=== PATIENT | female | born 1970 | race Caucasian/White ===

== ENCOUNTER 2019-08-07 08:42 | Inpatient (IN) | payer BC ==
[2019-08-07] MEDS ORDERED: Sodium Chloride 0.9% 1,000 ML IV ONE (09:01)
[2019-08-07] MEDS ORDERED: Morphine 10 MG/ML Syringe IVPUSH ONE (09:01)
[2019-08-07] MEDS ORDERED: Ondansetron 4 MG/2 ML SDV IVPUSH ONE (09:02)
--- NOTE | 2019-08-07 09:37 | CR ---
Chest: Portable view of the chest was obtained. Comparison: Prior chest x-ray of 12/28/15. Multiple old left-sided rib deformities are seen. Scoliosis is noted within the spine. Heart size and mediastinum are normal. Lungs are clear with no acute parenchymal change. Impression: 1. Findings as described above. 2. Nothing acute is appreciated on portable chest x-ray. Diagnostic code #2 This report was dictated in MDT
[2019-08-07 09:49] LABS: BLOOD UREA NITROGEN,BUN 12 mg/dL (7.0-18.0); CARBON DIOXIDE,CO2 21.7 mmol/L (21.0-32.0); CHLORIDE,CL 98 mmol/L (98-107); GLUCOSE RANDOM 132 mg/dL (74-106); LIPASE 92 U/L (73-393); POTASSIUM,K 3.8 mmol/L (3.5-5.1); SODIUM,NA 134 mmol/L (136-145)
--- NOTE | 2019-08-07 11:23 | CT ---
CT abdomen and pelvis Technique: Multiple axial sections were obtained from above the dome of the diaphragm inferiorly through the pubic symphysis. Intravenous contrast was utilized. No oral contrast has been given. Findings: Visualized lung bases show nothing acute. Deformity is noted to several left lower ribs compatible with old fractures. Calcifications are seen along the splenic periphery most likely relating to old injury with dystrophic calcifications. Adrenal glands show no nodule. Kidneys show symmetric contrast enhancement without hydronephrosis or mass. Gallbladder contains no calcified gallstones. Pancreas is within normal limits. Aorta shows no aneurysm. No retroperitoneal adenopathy or mesenteric abnormalities are seen. There is bowel wall thickening being seen within the sigmoid colon. Diverticuli are also noted within the sigmoid colon. Mild surrounding inflammatory change is also noted in this area around the sigmoid colon. Findings are felt compatible with diverticulitis. Small cyst is noted within the left ovary measuring 2.4 cm. Appendix is seen and is normal in size. Bone window settings were reviewed which shows scoliosis and mild degenerative change within the spine. Impression: 1. Findings of diverticulitis as noted above. This occurs within the sigmoid colon. 2. 2.4 cm cyst within the left ovary. Follow-up pelvic ultrasound could be considered in 6 months (January,) to make sure this does not enlarge. 3. Other findings believed to be incidental and nonacute as noted above. Diagnostic code #3 This report was dictated in MDT
[2019-08-07] MEDS ORDERED: Piperacillin/Tazobactam 3.375 GM in Sodium Chloride 0.9% 50 ML IV ONE (11:32)
[2019-08-07] MEDS ORDERED: metroNIDAZOLE/Normal Saline 500 MG in Premix Bag 1 BAG IV ONE ×2 (11:33→13:15)
--- NOTE | 2019-08-07 11:53 | EDM.PDOC ---
ED HPI GENERAL MEDICAL PROBLEM - General Chief Complaint: Abdominal Pain Stated Complaint: STOMACH PAIN Time Seen by Provider: 08/07/19 08:57 Source of Information: Reports: Patient History Limitations: Reports: No Limitations - History of Present Illness INITIAL COMMENTS - FREE TEXT/NARRATIVE: -49 year-old female presents to the emergency room chief complaint of severe lower abdominal pain. Patient denies nausea vomiting diarrhea or chest pain or shortness of breath Onset: Today Duration: Hour(s):, Getting Worse Location: Reports: Abdomen Quality: Reports: Ache Severity: Moderate Improves with: Reports: None Worsens with: Reports: None Abdominal Pain Score (Numeric/FACES): 10 - Related Data Allergies Allergy/AdvReac Type Severity Reaction Status Date / Time No Known Allergies Allergy Verified 08/07/19 12:48 Home Meds: Home Meds . [No Known Home Meds] 08/07/19 [History] Past Medical History HEENT History: Reports: Other (See Below) Other HEENT History: wears glasses, has upper denture Cardiovascular History: Reports: High Cholesterol Respiratory History: Reports: Pneumothorax Other Respiratory History: "punctured lung" Gastrointestinal History: Reports: Other (See Below) Other Gastrointestinal History: hx of ruptured spleen 14 years ago Genitourinary History: Reports: None [employer] ASSISTANT History: Reports: None Musculoskeletal History: Reports: Fracture Other Musculoskeletal History: hx of fx foot and ribs, hx of scoliosis Neurological History: Reports: None Psychiatric History: Reports: None Endocrine/Metabolic History: Reports: None Hematologic History: Reports: None Immunologic History: Reports: None Oncologic (Cancer) History: Reports: None Dermatologic History: Reports: None - Infectious Disease History Infectious Disease History: Reports: None - Past Surgical History Head Surgeries/Procedures: Reports: None HEENT Surgical History: Reports: Tonsillectomy Other Respiratory Surgeries/Procedures: hx of 7 fx ribs with Pneumothorax- had left chest tube insertion (14 years ago) GI Surgical History: Reports: Other (See Below) Other GI Surgeries/Procedures: Spleenic repair Female Surgical History: Reports: Cervical Conization, Tubal Ligation Social & Family History - Family History Family Medical History: Noncontributory HEENT: Reports: None Cardiac: Reports: None Respiratory: Reports: None GI: Reports: None : Reports: None OBGYN: Reports: None Musculoskeletal: Reports: None Neurological: Reports: None Psychiatric: Reports: None Endocrine/Metabolic: Reports: None Hematologic: Reports: None Immunologic: Reports: None Dermatologic: Reports: None Oncologic: Reports: None - Tobacco Use Smoking Status *Q: Former Smoker Used Tobacco, but Quit: Yes Month/Year Tobacco Last Used: 2019 - Caffeine Use Caffeine Use: Reports: Coffee - Recreational Drug Use Recreational Drug Use: No ED ROS GENERAL - Review of Systems Review Of Systems: See Below Constitutional: Reports: No Symptoms, Fever, Chills, Malaise HEENT: Reports: No Symptoms Respiratory: Reports: No Symptoms Cardiovascular: Reports: No Symptoms Endocrine: Reports: No Symptoms GI/Abdominal: Reports: Abdominal Pain, Anorexia, Diarrhea, Nausea : Reports: No Symptoms ED EXAM, GI/ABD - Physical Exam Exam: See Below Exam Limited By: Altered Mental Status General Appearance: Alert, WD/WN, No Apparent Distress Eyes: Bilateral: Normal Appearance Ears: Normal External Exam, Normal Canal, Hearing Grossly Normal, Normal TMs Nose: Normal Inspection, Normal Mucosa, No Blood Throat/Mouth: Normal Inspection, Normal Lips, Normal Teeth, Normal Gums, Normal Oropharynx, Normal Voice, No Airway Compromise Head: Atraumatic, Normocephalic Neck: Normal Inspection, Supple, Non-Tender, Full Range of Motion Respiratory/Chest: No Respiratory Distress Cardiovascular: Normal Peripheral Pulses GI/Abdominal Exam: Guarding, Rebound, Tender, Abnormal Bowel Sounds (Female) Exam: Deferred Rectal (Female) Exam: Deferred Back Exam: Normal Inspection, Full Range of Motion Extremities: Normal Inspection, Normal Range of Motion, Non-Tender, No Pedal Edema, Normal Capillary Refill Neurological: Alert, Oriented, CN II-XII Intact, Normal Cognition, Normal Gait, Normal Reflexes, No Motor/Sensory Deficits Psychiatric: Normal Affect, Normal Mood Skin Exam: Warm Lymphatic: No Adenopathy Course - Vital Signs Last Recorded V/S: Last Vital Signs Temp 98.6 F 08/08/19 16:00 Pulse 82 08/08/19 16:00 Resp 18 08/08/19 16:00 BP 108/55 L 08/08/19 16:00 Pulse Ox 95 08/08/19 16:00 - Orders/Labs/Meds Orders: Medication Orders Acetaminophen (Tylenol) 650 mg PO Q4H PRN PRN Reason: Pain Last Admin: 08/08/19 13:23 Dose: 650 mg Admin: 08/08/19 05:47 Dose: 650 mg Admin: 08/07/19 22:56 Dose: 650 mg Admin: 08/07/19 13:30 Dose: 650 mg Enoxaparin Sodium (Lovenox) 40 mg SUBCUT Q24H [facility] Last Admin: 08/08/19 12:43 Dose: 40 mg Admin: 08/07/19 13:25 Dose: 40 mg Sodium Chloride (Normal Saline) 1,000 mls @ 125 mls/hr IV ASDIRECTED [facility] Last Admin: 08/08/19 06:54 Dose: 125 mls/hr Infusion: 08/08/19 06:54 Dose: 125 mls/hr Admin: 08/07/19 23:00 Dose: 125 mls/hr Infusion: 08/07/19 21:20 Dose: 125 mls/hr Admin: 08/07/19 13:20 Dose: 125 mls/hr Piperacillin Sod/Tazobactam (Sod 3.375 gm/ Sodium Chloride) 50 mls @ 100 mls/ hr IV Q6HR [facility] Last Admin: 08/08/19 17:26 Dose: 100 mls/hr Infusion: 08/08/19 13:13 Dose: 100 mls/hr Admin: 08/08/19 12:43 Dose: 100 mls/hr Infusion: 08/08/19 06:18 Dose: 100 mls/hr Admin: 08/08/19 05:48 Dose: 100 mls/hr Infusion: 08/08/19 00:56 Dose: 100 mls/hr Admin: 08/08/19 00:26 Dose: 100 mls/hr Infusion: 08/07/19 18:12 Dose: 100 mls/hr Admin: 08/07/19 17:42 Dose: 100 mls/hr Potassium Chloride/Sodium Chloride (Normal Saline With 40 Meq Kcl) 1,000 mls @ 150 mls/hr IV ASDIRECTED [facility] Stop: 08/08/19 19:39 Last Admin: 08/08/19 15:07 Dose: 150 mls/hr Morphine Sulfate (Morphine) 2 mg IVPUSH Q4H PRN PRN Reason: Pain Last Admin: 08/07/19 22:58 Dose: 2 mg Admin: 08/07/19 18:24 Dose: 2 mg Admin: 08/07/19 13:34 Dose: 2 mg Ondansetron HCl (Zofran) 4 mg IVPUSH Q4H PRN PRN Reason: Nausea/Vomiting Labs: Laboratory Tests 08/07/19 08/07/19 08/07/19 Range/Units 09:07 09:07 09:07 WBC 17.99 H (4.0-11.0) K/uL RBC 4.48 (4.30-5.90) M/uL Hgb 13.0 (12.0-16.0) g/dL Hct 40.0 (36.0-46.0) % MCV 89.3 (80.0-98.0) fL MCH 29.0 (27.0-32.0) pg MCHC 32.5 (31.0-37.0) g/dL RDW Std Deviation 41.8 (28.0-62.0) fl RDW Coeff of Nevin 13 (11.0-15.0) % Plt Count 315 (150-400) K/uL MPV 9.70 (7.40-12.00) fL Neut % (Auto) 80.5 H (48.0-80.0) % Lymph % (Auto) 11.7 L (16.0-40.0) % [place] % (Auto) 7.4 (0.0-15.0) % Eos % (Auto) 0.2 (0.0-7.0) % Baso % (Auto) 0.2 (0.0-1.5) % Neut # (Auto) 14.5 H (1.4-5.7) K/uL Lymph # (Auto) 2.1 (0.6-2.4) K/uL [place] # (Auto) 1.3 H (0.0-0.8) K/uL Eos # (Auto) 0.0 (0.0-0.7) K/uL Baso # (Auto) 0.0 (0.0-0.1) K/uL Nucleated RBC % 0.0 /100WBC Nucleated RBCs # 0 K/uL Lactate 0.6 (0.20-2.00) mmol/L Sodium 134 L (136-145) mmol/L Potassium 3.8 (3.5-5.1) mmol/L Chloride 98 (98-107) mmol/L Carbon Dioxide 21.7 (21.0-32.0) mmol/L BUN 12 (7.0-18.0) mg/dL Creatinine 0.8 (0.6-1.0) mg/dL Est Cr Clr Drug Dosing 83.92 mL/min Estimated GFR (MDRD) > 60.0 ml/min Glucose 132 H (74-106) mg/dL Calcium 9.2 (8.5-10.1) mg/dL Total Bilirubin 0.5 (0.2-1.0) mg/dL AST 27 (15-37) IU/L ALT 34 (14-63) IU/L Alkaline Phosphatase 48 (46-116) U/L Total Protein 7.8 (6.4-8.2) g/dL Albumin 4.1 (3.4-5.0) g/dL Globulin 3.7 (2.6-4.0) g/dL Albumin/Globulin Ratio 1.1 (0.9-1.6) Lipase 92 (73-393) U/L Urine Color Urine Appearance Urine pH (5.0-8.0) Ur Specific [place] (1.001-1.035) Urine Protein (NEGATIVE) mg/dL Urine Glucose (UA) (NEGATIVE) mg/dL Urine Ketones (NEGATIVE) mg/dL Urine Occult Blood (NEGATIVE) Urine Nitrite (NEGATIVE) Urine Bilirubin (NEGATIVE) Urine Urobilinogen (<2.0) EU/dL Ur Leukocyte Esterase (NEGATIVE) 08/07/19 Range/Units 10:57 WBC (4.0-11.0) K/uL RBC (4.30-5.90) M/uL Hgb (12.0-16.0) g/dL Hct (36.0-46.0) % MCV (80.0-98.0) fL MCH (27.0-32.0) pg MCHC (31.0-37.0) g/dL RDW Std Deviation (28.0-62.0) fl RDW Coeff of [place]evin (11.0-15.0) % Plt Count (150-400) K/uL MPV (7.40-12.00) fL Neut % (Auto) (48.0-80.0) % Lymph % (Auto) (16.0-40.0) % [place] % (Auto) (0.0-15.0) % Eos % (Auto) (0.0-7.0) % Baso % (Auto) (0.0-1.5) % Neut # (Auto) (1.4-5.7) K/uL Lymph # (Auto) (0.6-2.4) K/uL [place] # (Auto) (0.0-0.8) K/uL Eos # (Auto) (0.0-0.7) K/uL Baso # (Auto) (0.0-0.1) K/uL Nucleated RBC % /100WBC Nucleated RBCs # K/uL Lactate (0.20-2.00) mmol/L Sodium (136-145) mmol/L Potassium (3.5-5.1) mmol/L Chloride (98-107) mmol/L Carbon Dioxide (21.0-32.0) mmol/L BUN (7.0-18.0) mg/dL Creatinine (0.6-1.0) mg/dL Est Cr Clr Drug Dosing mL/min Estimated GFR (MDRD) ml/min Glucose (74-106) mg/dL Calcium (8.5-10.1) mg/dL Total Bilirubin (0.2-1.0) mg/dL AST (15-37) IU/L ALT (14-63) IU/L Alkaline Phosphatase (46-116) U/L Total Protein (6.4-8.2) g/dL Albumin (3.4-5.0) g/dL Globulin (2.6-4.0) g/dL Albumin/Globulin Ratio (0.9-1.6) Lipase (73-393) U/L Urine Color YELLOW Urine Appearance CLEAR Urine pH 6.0 (5.0-8.0) Ur Specific [place] <= 1.005 (1.001-1.035) Urine Protein NEGATIVE (NEGATIVE) mg/dL Urine Glucose (UA) NEGATIVE (NEGATIVE) mg/dL Urine Ketones NEGATIVE (NEGATIVE) mg/dL Urine Occult Blood NEGATIVE (NEGATIVE) Urine Nitrite NEGATIVE (NEGATIVE) Urine Bilirubin NEGATIVE (NEGATIVE) Urine Urobilinogen 0.2 (<2.0) EU/dL Ur Leukocyte Esterase NEGATIVE (NEGATIVE) Meds: Medications Generic Name Dose Route Start Last Admin Trade Name Freq PRN Reason Stop Dose Admin Acetaminophen 650 mg 08/07/19 13:17 08/08/19 13:23 Tylenol PO 650 mg Q4H PRN Administration Pain Enoxaparin Sodium 40 mg 08/07/19 12:00 08/08/19 12:43 Lovenox SUBCUT 40 mg Q24H VICKIE Administration Sodium Chloride 1,000 mls @ 125 mls/hr 08/07/19 12:00 08/08/19 06:54 Normal Saline IV 125 mls/hr ASDIRECTED VICKIE Administration Piperacillin Sod/Tazobactam 50 mls @ 100 mls/hr 08/07/19 18:00 08/08/19 17:26 Sod 3.375 gm/ Sodium Chloride IV 100 mls/hr Q6HR VICKIE Administration Potassium Chloride/Sodium Chloride 1,000 mls @ 150 mls/hr 08/08/19 13:00 15:07 Normal Saline With 40 Meq Kcl IV 08/08/19 19:39 150 mls/hr ASDIRECTED VICKIE Administration Morphine Sulfate 2 mg 08/07/19 11:54 08/07/19 22:58 Morphine IVPUSH 2 mg Q4H PRN Administration Pain Ondansetron HCl 4 mg 08/07/19 11:54 Zofran IVPUSH Q4H PRN Nausea/Vomiting Discontinued Medications Generic Name Dose Route Start Last Admin Trade Name Freq PRN Reason Stop Dose Admin Sodium Chloride 1,000 mls @ 1,000 mls/hr 08/07/19 09:01 08/07/19 09:16 Normal Saline IV 08/07/19 10:00 1,000 mls/hr .Bolus ONE Administration Piperacillin Sod/Tazobactam 50 mls @ 100 mls/hr 08/07/19 11:32 08/07/19 11:56 Sod 3.375 gm/ Sodium Chloride IV 08/07/19 12:01 100 mls/hr ONETIME ONE Administration Metronidazole 500 mg/ Premix 100 mls @ 100 mls/hr 08/07/19 11:33 08/07/19 13: 21 IV 08/07/19 12:32 100 mls/hr ONETIME ONE Administration Piperacillin Sod/Tazobactam 50 mls @ 100 mls/hr 08/07/19 12:00 08/07/19 14:37 Sod 3.375 gm/ Sodium Chloride IV Not Given Q6H VICKIE Metronidazole 500 mg/ Premix 100 mls @ 100 mls/hr 08/07/19 13:15 08/07/19 13: 40 IV 08/07/19 14:14 Not Given ONETIME ONE Iopamidol 100 ml 08/07/19 14:41 08/07/19 14:48 Isovue-370 (76%) IVPUSH 08/07/19 14:42 100 ml ONETIME STA Administration Morphine Sulfate 6 mg 08/07/19 09:01 08/07/19 09:16 Morphine IVPUSH 08/07/19 09:02 6 mg ONETIME ONE Administration Ondansetron HCl 4 mg 08/07/19 09:02 08/07/19 09:16 Zofran IVPUSH 08/07/19 09:03 4 mg ONETIME ONE Administration Departure - Departure Time of Disposition: 19:27 Disposition: Admitted As Inpatient 64 Condition: Good Clinical Impression: Diverticulitis large intestine w/o perforation or abscess w/bleeding - Discharge Information Sepsis Event Note - Evaluation Sepsis Screening Result: Possible Sepsis Risk - Focused Exam Date Exam was Performed: 08/08/19 Time Exam was Performed: 19:27
[2019-08-07] MEDS ORDERED: Ondansetron 4 MG/2 ML SDV IVPUSH PRN (11:54)
[2019-08-07] MEDS ORDERED: Piperacillin/Tazobactam 3.375 GM in Sodium Chloride 0.9% 50 ML IV SCH (12:00)
--- NOTE | 2019-08-07 12:00 | PCM.HP.2 ---
H&P History of Present Illness - General Date of Service: 08/07/19 Admit Problem/Dx: Admission Diagnosis/Problem Admission Diagnosis/Problem Diverticulitis - History of Present Illness Initial Comments - Free Text/Narative: The patient is a 49 year old female who presented to the ER with lower abdominal pain for one day. Had associated chills but no fever and burning with urination. She denies associated nausea, vomiting, diarrhea, black/bloody stools. Eating fine yesterday but no appetite today. Denies previous episodes in the past. Denies past medical history. In the ER, work up revealed leukocytosis of 18, no anemia, lipase wnl, lactate wnl. Blood cultures were drawn. CT ab/pelvis revealed diverticulitis. In the ER she was given bolus of fluids, Zofran, dose of Flagyl and Zosyn. She was also given morphine for pain. PCP- none Abdominal Pain Score (Numeric/FACES): 10 - Related Data Allergies/Adverse Reactions: Allergies Allergy/AdvReac Type Severity Reaction Status Date / Time No Known Allergies Allergy Verified 08/07/19 12:48 Home Medications: Home Meds . [No Known Home Meds] 08/07/19 [History] Past Medical History HEENT History: Reports: Other (See Below) Other HEENT History: wears glasses, has upper denture Cardiovascular History: Reports: High Cholesterol Respiratory History: Reports: Pneumothorax Other Respiratory History: "punctured lung" Gastrointestinal History: Reports: Other (See Below) Other Gastrointestinal History: hx of ruptured spleen 14 years ago Genitourinary History: Reports: None J[employer] PRINCIPAL History: Reports: None Musculoskeletal History: Reports: Fracture Other Musculoskeletal History: hx of fx foot and ribs, hx of scoliosis Neurological History: Reports: None Psychiatric History: Reports: None Endocrine/Metabolic History: Reports: None Hematologic History: Reports: None Immunologic History: Reports: None Oncologic (Cancer) History: Reports: None Dermatologic History: Reports: None - Infectious Disease History Infectious Disease History: Reports: None - Past Surgical History Head Surgeries/Procedures: Reports: None HEENT Surgical History: Reports: Tonsillectomy Other Respiratory Surgeries/Procedures: hx of 5 fx ribs with Pneumothorax- had left chest tube insertion (14 years ago) GI Surgical History: Reports: Other (See Below) Other GI Surgeries/Procedures: Spleenic repair Female Surgical History: Reports: Cervical Conization, Tubal Ligation Social & Family History - Family History Family Medical History: Noncontributory HEENT: Reports: None Cardiac: Reports: None Respiratory: Reports: None GI: Reports: None : Reports: None OBGYN: Reports: None Musculoskeletal: Reports: None Neurological: Reports: None Psychiatric: Reports: None Endocrine/Metabolic: Reports: None Hematologic: Reports: None Immunologic: Reports: None Dermatologic: Reports: None Oncologic: Reports: None - Tobacco Use Smoking Status *Q: Former Smoker Used Tobacco, but Quit: Yes Month/Year Tobacco Last Used: 2019 - Caffeine Use Caffeine Use: Reports: Coffee - Recreational Drug Use Recreational Drug Use: No H&P Review of Systems - Review of Systems: Review Of Systems: See Below General: Reports: Chills, Decreased Appetite. Denies: Fever HEENT: Reports: No Symptoms Pulmonary: Reports: No Symptoms Cardiovascular: Reports: No Symptoms Gastrointestinal: Reports: Abdominal Pain. Denies: Black Stool, Bloody Stool, Constipation, Diarrhea, Nausea, Vomiting Genitourinary: Reports: Dysuria, Burning Musculoskeletal: Reports: No Symptoms Skin: Reports: No Symptoms Psychiatric: Reports: No Symptoms Neurological: Reports: No Symptoms Hematologic/Lymphatic: Reports: No Symptoms Immunologic: Reports: No Symptoms Exam - Exam Exam: See Below - Vital Signs Vital Signs: Last Vital Signs Temp 97.1 F 08/07/19 11:55 Pulse 92 08/07/19 11:55 Resp 18 08/07/19 11:55 BP 101/46 L 08/07/19 11:55 Pulse Ox 95 08/07/19 11:55 Weight: 86.183 kg - Exam General: Alert, Oriented, Cooperative HEENT: Conjunctiva Clear, EOMI, Mucosa Moist & [place], Posterior Pharynx Clear, Pupils Equal, Pupils Reactive Lungs: Clear to Auscultation, Normal Respiratory Effort Cardiovascular: Regular Rate, Regular Rhythm GI/Abdominal Exam: Normal Bowel Sounds, Soft, Tender (RLQ and LLQ) Extremities: No Pedal Edema Skin: Warm, Dry, Intact Psychiatric: Alert, Normal Affect, Normal Mood - Patient Data Lab Results Last 24 hrs: Laboratory Results - last 24 hr 08/07/19 08/07/19 08/07/19 Range/Units 09:07 09:07 09:07 WBC 17.99 H (4.0-11.0) K/uL RBC 4.48 (4.30-5.90) M/uL Hgb 13.0 (12.0-16.0) g/dL Hct 40.0 (36.0-46.0) % MCV 89.3 (80.0-98.0) fL MCH 29.0 (27.0-32.0) pg MCHC 32.5 (31.0-37.0) g/dL RDW Std Deviation 41.8 (28.0-62.0) fl RDW Coeff of Nevin 13 (11.0-15.0) % Plt Count 315 (150-400) K/uL MPV 9.70 (7.40-12.00) fL Neut % (Auto) 80.5 H (48.0-80.0) % Lymph % (Auto) 11.7 L (16.0-40.0) % [place] % (Auto) 7.4 (0.0-15.0) % Eos % (Auto) 0.2 (0.0-7.0) % Baso % (Auto) 0.2 (0.0-1.5) % Neut # (Auto) 14.5 H (1.4-5.7) K/uL Lymph # (Auto) 2.1 (0.6-2.4) K/uL [place] # (Auto) 1.3 H (0.0-0.8) K/uL Eos # (Auto) 0.0 (0.0-0.7) K/uL Baso # (Auto) 0.0 (0.0-0.1) K/uL Nucleated RBC % 0.0 /100WBC Nucleated RBCs # 0 K/uL Lactate 0.6 (0.20-2.00) mmol/L Sodium 134 L (136-145) mmol/L Potassium 3.8 (3.5-5.1) mmol/L Chloride 98 (98-107) mmol/L Carbon Dioxide 21.7 (21.0-32.0) mmol/L BUN 12 (7.0-18.0) mg/dL Creatinine 0.8 (0.6-1.0) mg/dL Est Cr Clr Drug Dosing 83.92 mL/min Estimated GFR (MDRD) > 60.0 ml/min Glucose 132 H (74-106) mg/dL Calcium 9.2 (8.5-10.1) mg/dL Total Bilirubin 0.5 (0.2-1.0) mg/dL AST 27 (15-37) IU/L ALT 34 (14-63) IU/L Alkaline Phosphatase 48 (46-116) U/L Total Protein 7.8 (6.4-8.2) g/dL Albumin 4.1 (3.4-5.0) g/dL Globulin 3.7 (2.6-4.0) g/dL Albumin/Globulin Ratio 1.1 (0.9-1.6) Lipase 92 (73-393) U/L Result Diagrams: 08/07/19 09:07 08/07/19 09:07 Sepsis Event Note - Evaluation Sepsis Screening Result: Possible Sepsis Risk - Focused Exam Vital Signs: Vital Signs Temp Pulse Resp BP Pulse Ox 08/07/19 11:55 97.1 F 92 18 101/46 L 95 08/07/19 08:53 95.9 F L 123 H 20 111/73 98 Date Exam was Performed: 08/07/19 Time Exam was Performed: 13:36 Problem List Initiated/Reviewed/Updated: Yes Orders Last 24hrs: Active Orders 24 hr Category Date Time Status Admission Status [Patient Status] [ADT] Stat ADT 08/07/19 11:50 Active Intake and Output [RC] ASDIRECTED Care 08/07/19 11:54 Ordered Vital Signs [RC] PER UNIT ROUTINE Care 08/07/19 11:54 Ordered Nothing Per Oral Diet [DIET] Diet 08/07/19 Lunch Ordered CULTURE BLOOD [BC] Stat Lab 08/07/19 09:29 Received CULTURE BLOOD [BC] Stat Lab 08/07/19 09:51 Received Enoxaparin [Lovenox] Med 08/07/19 12:00 Ordered 40 mg SUBCUT Q24H Morphine Med 08/07/19 11:54 Ordered 2 mg IVPUSH Q4H PRN Ondansetron [Zofran] Med 08/07/19 11:54 Ordered 4 mg IVPUSH Q4H PRN Piperacillin/Tazobactam [Piperacil-Tazobact] 3.375 gm Med 08/07/19 11:32 Active Sodium Chloride 0.9% [Normal Saline] 50 ml IV ONETIME Piperacillin/Tazobactam [Piperacil-Tazobact] 3.375 gm Med 08/07/19 12:00 Ordered Sodium Chloride 0.9% [Normal Saline] 50 ml IV Q6H Sodium Chloride 0.9% @ 125 MLS/HR (1,000ml) Med 08/07/19 12:00 Ordered Sodium Chloride 0.9% [Normal Saline] 1,000 ml IV ASDIRECTED metroNIDAZOLE/Normal Saline [Flagyl 500 MG in NS 100 ML Med 08/07/19 11:33 Active ] 500 mg Premix Bag 1 bag IV ONETIME Blood Culture x2 Reflex Set [OM.PC] Stat Oth 08/07/19 09:04 Ordered Resuscitation Status Stat Resus Stat 08/07/19 11:54 Ordered Medication Orders Enoxaparin Sodium (Lovenox) 40 mg SUBCUT Q24H VICKIE Piperacillin Sod/Tazobactam (Sod 3.375 gm/ Sodium Chloride) 50 mls @ 100 mls/ hr IV ONETIME ONE Stop: 08/07/19 12:01 Last Admin: 08/07/19 11:56 Dose: 100 mls/hr Metronidazole 500 mg/ Premix 100 mls @ 100 mls/hr IV ONETIME ONE Stop: 08/07/19 12:32 Piperacillin Sod/Tazobactam (Sod 3.375 gm/ Sodium Chloride) 50 mls @ 100 mls/ hr IV Q6H VICKIE Sodium Chloride (Normal Saline) 1,000 mls @ 125 mls/hr IV ASDIRECTED VICKIE Morphine Sulfate (Morphine) 2 mg IVPUSH Q4H PRN PRN Reason: Pain Ondansetron HCl (Zofran) 4 mg IVPUSH Q4H PRN PRN Reason: Nausea/Vomiting Assessment/Plan Comment:: 1. Admit as inpatient 2. Code status- full 3. Vitals per routine 4. I/Os per routine 5. Diet- NPO 6. DVT prophylaxis with Lovenox 7. Diverticulitis- will keep NPO to allow for bowel rest. Start IVFs. Continue Zosyn for antibiotics. PRN Zofran and morphine. 8. Burning with urination-obtain UA but already on antibiotics.
[2019-08-07] MEDS: Sodium Chloride 0.9% 1,000 ML IV SCH ×2 (13:20→23:00)
[2019-08-07] MEDS: Enoxaparin 40 MG/0.4 ML Syringe SUBCUT SCH (13:25)
[2019-08-07] MEDS: Acetaminophen 325 MG Tab PO PRN ×2 (13:30→22:56)
[2019-08-07] MEDS: Morphine 2 MG/ML Syringe IVPUSH PRN ×3 (13:34→22:58)
[2019-08-07] MEDS ORDERED: Iopamidol 755 Mg/ML 100 ML Bottle IVPUSH STA (14:41)
[2019-08-07] MEDS: Piperacillin/Tazobactam 3.375 GM in Sodium Chloride 0.9% 50 ML IV SCH (17:42)
[2019-08-08] MEDS: Piperacillin/Tazobactam 3.375 GM in Sodium Chloride 0.9% 50 ML IV SCH ×5 (00:26→23:44)
[2019-08-08] MEDS: Acetaminophen 325 MG Tab PO PRN ×2 (05:47→13:23)
[2019-08-08] MEDS: Sodium Chloride 0.9% 1,000 ML IV SCH ×2 (06:54→21:51)
[2019-08-08 06:55] LABS: BLOOD UREA NITROGEN,BUN 8 mg/dL (7.0-18.0); CARBON DIOXIDE,CO2 24.5 mmol/L (21.0-32.0); CHLORIDE,CL 105 mmol/L (98-107); GLUCOSE RANDOM 96 mg/dL (74-106); POTASSIUM,K 3.4 mmol/L (3.5-5.1); SODIUM,NA 138 mmol/L (136-145)
[2019-08-08] MEDS: Enoxaparin 40 MG/0.4 ML Syringe SUBCUT SCH (12:43)
--- NOTE | 2019-08-08 12:59 | PCM.PN ---
- General Info Date of Service: 08/08/19 - Review of Systems Systems Review Comment:: abdominal pain resolving, having fevers this morning. - Patient Data Vitals - Most Recent: Last Vital Signs Temp 37.0 C 08/08/19 12:00 Pulse 102 H 08/08/19 12:00 Resp 19 08/08/19 12:00 BP 131/76 08/08/19 12:00 Pulse Ox 95 08/08/19 12:00 Weight - Most Recent: 86.183 kg I&O - Last 24 Hours: Intake & Output 08/07/19 08/08/19 08/08/19 22:59 06:59 14:59 Intake Total 30 1538 Output Total 360 1250 Balance -330 288 Lab Results Last 24 Hours: Laboratory Results - last 24 hr 08/07/19 08/08/19 08/08/19 Range/Units 10:57 06:05 06:05 WBC 12.10 H (4.0-11.0) K/uL RBC 3.90 L (4.30-5.90) M/uL Hgb 11.3 L (12.0-16.0) g/dL Hct 35.6 L (36.0-46.0) % MCV 91.3 (80.0-98.0) fL MCH 29.0 (27.0-32.0) pg MCHC 31.7 (31.0-37.0) g/dL RDW Std Deviation 44.7 (28.0-62.0) fl RDW Coeff of Nevin 14 (11.0-15.0) % Plt Count 261 (150-400) K/uL MPV 10.30 (7.40-12.00) fL Neut % (Auto) 73.8 (48.0-80.0) % Lymph % (Auto) 18.7 (16.0-40.0) % [place] % (Auto) 6.5 (0.0-15.0) % Eos % (Auto) 0.8 (0.0-7.0) % Baso % (Auto) 0.2 (0.0-1.5) % Neut # (Auto) 8.9 H (1.4-5.7) K/uL Lymph # (Auto) 2.3 (0.6-2.4) K/uL [place] # (Auto) 0.8 (0.0-0.8) K/uL Eos # (Auto) 0.1 (0.0-0.7) K/uL Baso # (Auto) 0.0 (0.0-0.1) K/uL Nucleated RBC % 0.0 /100WBC Nucleated RBCs # 0 K/uL Sodium 138 (136-145) mmol/L Potassium 3.4 L (3.5-5.1) mmol/L Chloride 105 (98-107) mmol/L Carbon Dioxide 24.5 (21.0-32.0) mmol/L BUN 8 (7.0-18.0) mg/dL Creatinine 0.8 (0.6-1.0) mg/dL Est Cr Clr Drug Dosing 83.92 mL/min Estimated GFR (MDRD) > 60.0 ml/min Glucose 96 (74-106) mg/dL Calcium 8.0 L (8.5-10.1) mg/dL Urine Color YELLOW Urine Appearance CLEAR Urine pH 6.0 (5.0-8.0) Ur Specific [place] <= 1.005 (1.001-1.035) Urine Protein NEGATIVE (NEGATIVE) mg/dL Urine Glucose (UA) NEGATIVE (NEGATIVE) mg/dL Urine Ketones NEGATIVE (NEGATIVE) mg/dL Urine Occult Blood NEGATIVE (NEGATIVE) Urine Nitrite NEGATIVE (NEGATIVE) Urine Bilirubin NEGATIVE (NEGATIVE) Urine Urobilinogen 0.2 (<2.0) EU/dL Ur Leukocyte Esterase NEGATIVE (NEGATIVE) SARS-CoV-2 RNA (RT-PCR) (NEGATIVE) 08/08/19 Range/Units 11:50 WBC (4.0-11.0) K/uL RBC (4.30-5.90) M/uL Hgb (12.0-16.0) g/dL Hct (36.0-46.0) % MCV (80.0-98.0) fL MCH (27.0-32.0) pg MCHC (31.0-37.0) g/dL RDW Std Deviation (28.0-62.0) fl RDW Coeff of Nevin (11.0-15.0) % Plt Count (150-400) K/uL MPV (7.40-12.00) fL Neut % (Auto) (48.0-80.0) % Lymph % (Auto) (16.0-40.0) % [place] % (Auto) (0.0-15.0) % Eos % (Auto) (0.0-7.0) % Baso % (Auto) (0.0-1.5) % Neut # (Auto) (1.4-5.7) K/uL Lymph # (Auto) (0.6-2.4) K/uL [place] # (Auto) (0.0-0.8) K/uL Eos # (Auto) (0.0-0.7) K/uL Baso # (Auto) (0.0-0.1) K/uL Nucleated RBC % /100WBC Nucleated RBCs # K/uL Sodium (136-145) mmol/L Potassium (3.5-5.1) mmol/L Chloride (98-107) mmol/L Carbon Dioxide (21.0-32.0) mmol/L BUN (7.0-18.0) mg/dL Creatinine (0.6-1.0) mg/dL Est Cr Clr Drug Dosing mL/min Estimated GFR (MDRD) ml/min Glucose (74-106) mg/dL Calcium (8.5-10.1) mg/dL Urine Color Urine Appearance Urine pH (5.0-8.0) Ur Specific [place] (1.001-1.035) Urine Protein (NEGATIVE) mg/dL Urine Glucose (UA) (NEGATIVE) mg/dL Urine Ketones (NEGATIVE) mg/dL Urine Occult Blood (NEGATIVE) Urine Nitrite (NEGATIVE) Urine Bilirubin (NEGATIVE) Urine Urobilinogen (<2.0) EU/dL Ur Leukocyte Esterase (NEGATIVE) SARS-CoV-2 RNA (RT-PCR) NEGATIVE (NEGATIVE) [place] Results Last 24 Hours: Microbiology 08/07/19 09:51 Aerobic Blood Culture - Preliminary Blood - Venous - Lab Draw NO GROWTH AFTER 1 DAY Anaerobic Blood Culture - Preliminary NO GROWTH AFTER 1 DAY 08/07/19 09:29 Aerobic Blood Culture - Preliminary Blood - Venous NO GROWTH AFTER 1 DAY Anaerobic Blood Culture - Preliminary NO GROWTH AFTER 1 DAY Med Orders - Current: Current Medications Acetaminophen (Tylenol) 650 mg PO Q4H PRN PRN Reason: Pain Last Admin: 08/08/19 05:47 Dose: 650 mg Enoxaparin Sodium (Lovenox) 40 mg SUBCUT Q24H [facility] Last Admin: 08/08/19 12:43 Dose: 40 mg Sodium Chloride (Normal Saline) 1,000 mls @ 125 mls/hr IV ASDIRECTED [facility] Last Admin: 08/08/19 06:54 Dose: 125 mls/hr Piperacillin Sod/Tazobactam (Sod 3.375 gm/ Sodium Chloride) 50 mls @ 100 mls/ hr IV Q6HR [facility] Last Admin: 08/08/19 12:43 Dose: 100 mls/hr Potassium Chloride/Sodium Chloride (Normal Saline With 40 Meq Kcl) 1,000 mls @ 150 mls/hr IV ASDIRECTED [facility] Stop: 08/08/19 19:39 Morphine Sulfate (Morphine) 2 mg IVPUSH Q4H PRN PRN Reason: Pain Last Admin: 08/07/19 22:58 Dose: 2 mg Ondansetron HCl (Zofran) 4 mg IVPUSH Q4H PRN PRN Reason: Nausea/Vomiting Discontinued Medications Sodium Chloride (Normal Saline) 1,000 mls @ 1,000 mls/hr IV .Bolus ONE Stop: 08/07/19 10:00 Last Admin: 08/07/19 09:16 Dose: 1,000 mls/hr Piperacillin Sod/Tazobactam (Sod 3.375 gm/ Sodium Chloride) 50 mls @ 100 mls/ hr IV ONETIME ONE Stop: 08/07/19 12:01 Last Admin: 08/07/19 11:56 Dose: 100 mls/hr Metronidazole 500 mg/ Premix 100 mls @ 100 mls/hr IV ONETIME ONE Stop: 08/07/19 12:32 Last Admin: 08/07/19 13:21 Dose: 100 mls/hr Piperacillin Sod/Tazobactam (Sod 3.375 gm/ Sodium Chloride) 50 mls @ 100 mls/ hr IV Q6H [facility] Last Admin: 08/07/19 14:37 Dose: Not Given Metronidazole 500 mg/ Premix 100 mls @ 100 mls/hr IV ONETIME ONE Stop: 08/07/19 14:14 Last Admin: 08/07/19 13:40 Dose: Not Given Iopamidol (Isovue-370 (76%)) 100 ml IVPUSH ONETIME STA Stop: 08/07/19 14:42 Last Admin: 08/07/19 14:48 Dose: 100 ml Morphine Sulfate (Morphine) 6 mg IVPUSH ONETIME ONE Stop: 08/07/19 09:02 Last Admin: 08/07/19 09:16 Dose: 6 mg Ondansetron HCl (Zofran) 4 mg IVPUSH ONETIME ONE Stop: 08/07/19 09:03 Last Admin: 08/07/19 09:16 Dose: 4 mg - Exam General: Alert, Oriented Neck: Supple Lungs: Clear to Auscultation, Normal Respiratory Effort Cardiovascular: Regular Rate, Regular Rhythm GI/Abdominal Exam: Normal Bowel Sounds, Soft, Non-Tender, No Distention Extremities: Non-Tender, No Pedal Edema Skin: Warm, Dry, Intact Neurological: No New Focal Deficit Sepsis Event Note - Evaluation Sepsis Screening Result: Sepsis Risk - Focused Exam Vital Signs: Vital Signs Temp Pulse Resp BP Pulse Ox 08/08/19 12:00 37.0 C 102 H 19 131/76 95 08/08/19 07:38 37.6 C 84 17 120/58 L 95 08/08/19 03:50 37.3 C 75 17 104/55 L 95 Date Exam was Performed: 08/08/19 Time Exam was Performed: 12:51 - Problem List Review Problem List Initiated/Reviewed/Updated: Yes - My Orders Last 24 Hours: My Active Orders 08/08/19 13:00 Sodium Chloride 0.9% with KCl 40 mEq @ Enter Rate (1000 mL) Sodium Chloride 0.9 % with KCl [Normal Saline with 40 mEq KCl] 1,000 ml IV ASDIRECTED 08/08/19 Breakfast Advance Diet Instructions [DIET] - Plan Plan:: 49 yo female admitted for acute diverticulitis Diverticulitis: improving, will advance diet to clear liquids, continue Zosyn, Patient having fevers, 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 COVID negative this morning.
[2019-08-08] MEDS ORDERED: Sodium Chloride 0.9% with KCl 1,000 ML IV SCH (13:00)
[2019-08-08] MEDS: Morphine 2 MG/ML Syringe IVPUSH PRN (19:35)
[2019-08-09] MEDS: Acetaminophen 325 MG Tab PO PRN ×2 (05:04→11:46)
[2019-08-09] MEDS: Piperacillin/Tazobactam 3.375 GM in Sodium Chloride 0.9% 50 ML IV SCH (05:05)
[2019-08-09 05:41] LABS: BLOOD UREA NITROGEN,BUN 4 mg/dL (7.0-18.0); CARBON DIOXIDE,CO2 23.9 mmol/L (21.0-32.0); CHLORIDE,CL 104 mmol/L (98-107); GLUCOSE RANDOM 81 mg/dL (74-106); POTASSIUM,K 3.1 mmol/L (3.5-5.1); SODIUM,NA 137 mmol/L (136-145)
[2019-08-09] MEDS: Sodium Chloride 0.9% 1,000 ML IV SCH (05:51)
--- NOTE | 2019-08-09 08:30 | PCM.DCSUM1 ---
<Rosi Brown - Last Filed: 08/09/19 11:15> Discharge Summary - Hospital Course HPI Initial Comments: Admission Date: 08/07/19 Discharge Date: 08/09/19 Admission Diagnosis: 1. Diverticulitis Discharge Diagnosis: 1. Diverticulitis 2. Hypokalemia Procedures: None Consults: None Hospital Course: The patient is a 49 year old female who presented to the ER with lower abdominal pain. In the ER, work up revealed leukocytosis of 18, no anemia, lipase wnl, lactate wnl. Blood cultures were drawn. CT ab/pelvis revealed diverticulitis. In the ER, she was treated with antibiotics, pain control, and fluids. She was admitted to the medical floor. She was placed NPO and continued on Zosyn. She had prn medications for nausea and pain. As her pain and white count improved her diet was advanced. She developed hypokalemia, this was replaced. By day of discharge, her symptoms had improved , and she was requesting discharge. Disposition: Home Discharge Condition: vitals stable, tolerating oral diet, ambulating without difficulty, symptom improvement Discharge Instructions: advance diet as tolerated, activity as tolerated, take medications as prescribed. Symptoms to report to physician include fever/chills , chest pain, shortness of breath, abdominal pain, erythema, drainage/discharge , or not improving as expected. Discharge Medications: Ciprofloxacin HCl [Cipro] 500 mg PO Q12HR metroNIDAZOLE [Flagyl] 500 mg PO Q8H Follow-up: 1. PCP 2. General surgery - Discharge Data Discharge Date: 08/09/19 Discharge Disposition: Home, Self-Care 01 Condition: Stable - Referral to Home Health Primary Care Physician: PCP None - Discharge Plan Prescriptions/Med Rec: Ciprofloxacin HCl [Cipro] 500 mg PO Q12HR 10 Days #20 tablet metroNIDAZOLE [Flagyl] 500 mg PO Q8H 10 Days #30 tab Home Medications: Home Meds Ciprofloxacin HCl [Cipro] 500 mg PO Q12HR 10 Days #20 tablet 08/09/19 [Rx] metroNIDAZOLE [Flagyl] 500 mg PO Q8H 10 Days #30 tab 08/09/19 [Rx] Patient Handouts: Diverticulitis, Ciprofloxacin tablets, Metronidazole tablets or capsules Forms: ED Department Discharge Referrals: Kiera Sanchez MD [Physician] - (Please call the surgical office to make an appointment in a few weeks when the inflammation has reduced. ) PCP,None [Primary Care Provider] - - Discharge Summary/Plan Comment DC Time >30 min.: No - Patient Data Vitals - Most Recent: Last Vital Signs Temp 98.2 F 08/09/19 04:00 Pulse 81 08/09/19 04:00 Resp 17 08/09/19 04:00 BP 123/59 L 08/09/19 04:00 Pulse Ox 95 08/09/19 04:00 Weight - Most Recent: 86.183 kg I&O - Last 24 hours: Intake & Output 08/08/19 08/09/19 08/09/19 22:59 06:59 14:59 Intake Total 2975 1636 Output Total 550 1250 Balance 2425 386 Lab Results - Last 24 hrs: Laboratory Results - last 24 hr 08/08/19 08/09/19 08/09/19 Range/Units 11:50 05:00 05:00 WBC 10.64 (4.0-11.0) K/uL RBC 3.57 L (4.30-5.90) M/uL Hgb 10.1 L (12.0-16.0) g/dL Hct 32.3 L (36.0-46.0) % MCV 90.5 (80.0-98.0) fL MCH 28.3 (27.0-32.0) pg MCHC 31.3 (31.0-37.0) g/dL RDW Std Deviation 43.2 (28.0-62.0) fl RDW Coeff of Nevin 13 (11.0-15.0) % Plt Count 269 (150-400) K/uL MPV 9.90 (7.40-12.00) fL Neut % (Auto) 72.1 (48.0-80.0) % Lymph % (Auto) 20.0 (16.0-40.0) % [place] % (Auto) 6.5 (0.0-15.0) % Eos % (Auto) 1.1 (0.0-7.0) % Baso % (Auto) 0.3 (0.0-1.5) % Neut # (Auto) 7.7 H (1.4-5.7) K/uL Lymph # (Auto) 2.1 (0.6-2.4) K/uL [place] # (Auto) 0.7 (0.0-0.8) K/uL Eos # (Auto) 0.1 (0.0-0.7) K/uL Baso # (Auto) 0.0 (0.0-0.1) K/uL Nucleated RBC % 0.0 /100WBC Nucleated RBCs # 0 K/uL Sodium 137 (136-145) mmol/L Potassium 3.1 L (3.5-5.1) mmol/L Chloride 104 (98-107) mmol/L Carbon Dioxide 23.9 (21.0-32.0) mmol/L BUN 4 L (7.0-18.0) mg/dL Creatinine 0.8 (0.6-1.0) mg/dL Est Cr Clr Drug Dosing 83.92 mL/min Estimated GFR (MDRD) > 60.0 ml/min Glucose 81 (74-106) mg/dL Calcium 7.3 L (8.5-10.1) mg/dL SARS-CoV-2 RNA (RT-PCR) NEGATIVE (NEGATIVE) VARUN Results - Last 24 hrs: Microbiology 08/07/19 09:51 Aerobic Blood Culture - Preliminary Blood - Venous - Lab Draw NO GROWTH AFTER 1 DAY Anaerobic Blood Culture - Preliminary NO GROWTH AFTER 1 DAY 08/07/19 09:29 Aerobic Blood Culture - Preliminary Blood - Venous NO GROWTH AFTER 1 DAY Anaerobic Blood Culture - Preliminary NO GROWTH AFTER 1 DAY Med Orders - Current: Current Medications Acetaminophen (Tylenol) 650 mg PO Q4H PRN PRN Reason: Pain Last Admin: 08/09/19 05:04 Dose: 650 mg Enoxaparin Sodium (Lovenox) 40 mg SUBCUT Q24H [facility]S [facility] 234 BEDS AT [facility] Last Admin: 08/08/19 12:43 Dose: 40 mg Sodium Chloride (Normal Saline) 1,000 mls @ 125 mls/hr IV ASDIRECTED COUNTS INCLUDE 234 BEDS AT THE [facility] Last Admin: 08/09/19 05:51 Dose: 125 mls/hr Piperacillin Sod/Tazobactam (Sod 3.375 gm/ Sodium Chloride) 50 mls @ 100 mls/ hr IV Q6HR COUNTS INCLUDE 234 BEDS AT THE [facility] Last Admin: 08/09/19 05:05 Dose: 100 mls/hr Morphine Sulfate (Morphine) 2 mg IVPUSH Q4H PRN PRN Reason: Pain Last Admin: 08/08/19 19:35 Dose: 2 mg Ondansetron HCl (Zofran) 4 mg IVPUSH Q4H PRN PRN Reason: Nausea/Vomiting Last Admin: 08/08/19 19:34 Dose: 4 mg Discontinued Medications Sodium Chloride (Normal Saline) 1,000 mls @ 1,000 mls/hr IV .Bolus ONE Stop: 08/07/19 10:00 Last Admin: 08/07/19 09:16 Dose: 1,000 mls/hr Piperacillin Sod/Tazobactam (Sod 3.375 gm/ Sodium Chloride) 50 mls @ 100 mls/ hr IV ONETIME ONE Stop: 08/07/19 12:01 Last Admin: 08/07/19 11:56 Dose: 100 mls/hr Metronidazole 500 mg/ Premix 100 mls @ 100 mls/hr IV ONETIME ONE Stop: 08/07/19 12:32 Last Admin: 08/07/19 13:21 Dose: 100 mls/hr Piperacillin Sod/Tazobactam (Sod 3.375 gm/ Sodium Chloride) 50 mls @ 100 mls/ hr IV Q6H [facility] Last Admin: 08/07/19 14:37 Dose: Not Given Metronidazole 500 mg/ Premix 100 mls @ 100 mls/hr IV ONETIME ONE Stop: 08/07/19 14:14 Last Admin: 08/07/19 13:40 Dose: Not Given Potassium Chloride/Sodium Chloride (Normal Saline With 40 Meq Kcl) 1,000 mls @ 150 mls/hr IV ASDIRECTED [facility] Stop: 08/08/19 19:39 Last Admin: 08/08/19 15:07 Dose: 150 mls/hr Iopamidol (Isovue-370 (76%)) 100 ml IVPUSH ONETIME STA Stop: 08/07/19 14:42 Last Admin: 08/07/19 14:48 Dose: 100 ml Morphine Sulfate (Morphine) 6 mg IVPUSH ONETIME ONE Stop: 08/07/19 09:02 Last Admin: 08/07/19 09:16 Dose: 6 mg Ondansetron HCl (Zofran) 4 mg IVPUSH ONETIME ONE Stop: 08/07/19 09:03 Last Admin: 08/07/19 09:16 Dose: 4 mg <David,Hooria - Last Filed: 08/11/19 11:33> Discharge Summary - Hospital Course HPI Initial Comments: I have seen and evaluated the patient and agree with the residents note unless specified in my note - Referral to Home Health Primary Care Physician: PCP None - Patient Data Vitals - Most Recent: Last Vital Signs Temp 36.7 C 08/09/19 08:00 Pulse 75 08/09/19 08:00 Resp 18 08/09/19 08:00 BP 126/64 08/09/19 08:00 Pulse Ox 95 08/09/19 08:00 VARUN Results - Last 24 hrs: Microbiology 08/07/19 09:51 Aerobic Blood Culture - Preliminary Blood - Venous - Lab Draw NO GROWTH AFTER 4 DAYS Anaerobic Blood Culture - Preliminary NO GROWTH AFTER 4 DAYS 08/07/19 09:29 Aerobic Blood Culture - Preliminary Blood - Venous NO GROWTH AFTER 4 DAYS Anaerobic Blood Culture - Preliminary NO GROWTH AFTER 4 DAYS Med Orders - Current: Current Medications Discontinued Medications Acetaminophen (Tylenol) 650 mg PO Q4H PRN PRN Reason: Pain Last Admin: 08/09/19 11:46 Dose: 650 mg Enoxaparin Sodium (Lovenox) 40 mg SUBCUT Q24H COUNTS INCLUDE 234 BEDS AT THE [facility] Last Admin: 08/08/19 12:43 Dose: 40 mg Sodium Chloride (Normal Saline) 1,000 mls @ 1,000 mls/hr IV .Bolus ONE Stop: 08/07/19 10:00 Last Admin: 08/07/19 09:16 Dose: 1,000 mls/hr Piperacillin Sod/Tazobactam (Sod 3.375 gm/ Sodium Chloride) 50 mls @ 100 mls/ hr IV ONETIME ONE Stop: 08/07/19 12:01 Last Admin: 08/07/19 11:56 Dose: 100 mls/hr Metronidazole 500 mg/ Premix 100 mls @ 100 mls/hr IV ONETIME ONE Stop: 08/07/19 12:32 Last Admin: 08/07/19 13:21 Dose: 100 mls/hr Piperacillin Sod/Tazobactam (Sod 3.375 gm/ Sodium Chloride) 50 mls @ 100 mls/ hr IV Q6H COUNTS INCLUDE 234 BEDS AT THE [facility] Last Admin: 08/07/19 14:37 Dose: Not Given Sodium Chloride (Normal Saline) 1,000 mls @ 125 mls/hr IV ASDIRECTED COUNTS INCLUDE 234 BEDS AT THE [facility] Last Admin: 08/09/19 05:51 Dose: 125 mls/hr Metronidazole 500 mg/ Premix 100 mls @ 100 mls/hr IV ONETIME ONE Stop: 08/07/19 14:14 Last Admin: 08/07/19 13:40 Dose: Not Given Piperacillin Sod/Tazobactam (Sod 3.375 gm/ Sodium Chloride) 50 mls @ 100 mls/ hr IV Q6HR [facility] Last Admin: 08/09/19 05:05 Dose: 100 mls/hr Potassium Chloride/Sodium Chloride (Normal Saline With 40 Meq Kcl) 1,000 mls @ 150 mls/hr IV ASDIRECTED [facility] Stop: 08/08/19 19:39 Last Admin: 08/08/19 15:07 Dose: 150 mls/hr Iopamidol (Isovue-370 (76%)) 100 ml IVPUSH ONETIME STA Stop: 08/07/19 14:42 Last Admin: 08/07/19 14:48 Dose: 100 ml Morphine Sulfate (Morphine) 6 mg IVPUSH ONETIME ONE Stop: 08/07/19 09:02 Last Admin: 08/07/19 09:16 Dose: 6 mg Morphine Sulfate (Morphine) 2 mg IVPUSH Q4H PRN PRN Reason: Pain Last Admin: 08/08/19 19:35 Dose: 2 mg Ondansetron HCl (Zofran) 4 mg IVPUSH ONETIME ONE Stop: 08/07/19 09:03 Last Admin: 08/07/19 09:16 Dose: 4 mg Ondansetron HCl (Zofran) 4 mg IVPUSH Q4H PRN PRN Reason: Nausea/Vomiting Last Admin: 08/08/19 19:34 Dose: 4 mg Potassium Chloride (Klor-Con M20) 40 meq PO ONETIME ONE Stop: 08/09/19 11:16 Last Admin: 08/09/19 11:46 Dose: 40 meq
[2019-08-09 10:48] VITALS: BP 126/64; PULSE 75
[2019-08-09] MEDS ORDERED: Potassium Chloride 20 MEQ Tab.ER PO ONE (11:15)
== END 2019-08-09 12:05 | disposition home or self-care (01) | DRG 244 ==
LOC: MW.ED 08:42 → MW.MS 11:54
PROVIDERS: ADMIT Internal Medicine; ATTEND Internal Medicine
DX: K57.32 Diverticulitis of large intestine without perforation or abscess without bleeding (principal); E87.6 Hypokalemia; H54.7 Unspecified visual loss; E78.00 Pure hypercholesterolemia, unspecified; R30.0 Dysuria; Z20.828 Contact with and (suspected) exposure to other viral communicable diseases; Z90.89 Acquired absence of other organs; Z98.51 Tubal ligation status; Z87.891 Personal history of nicotine dependence
CPT/HCPCS: 36415; 71045; 71045-26; 74177; 74177-26; 80048; 80053; 81003; 83605; 83690; 85025; 87040; 96361; 96374; 96375; 99284; 99285-25; A9270-GY; J1650; J2270; J2405; J2543; J3480; J3490; J7030; J7050; Q9967; U0002

== ENCOUNTER 2023-11-13 13:52 | Emergency (ER) | payer SELFPAY ==
[2023-11-13] MEDS: Aspirin 81 MG Tab.Chew PO STA (14:08)
[2023-11-13 14:17] LABS: BASOPHILS ABSOLUTE AUTO 0.05 K/uL (0.00-0.20); BASOPHILS PERCENT AUTO 0.7 % (0.0-1.0); EOSINOPHILS ABSOLUTE AUTO 0.18 K/uL (0.00-0.45); EOSINOPHILS PERCENT AUTO 2.6 % (0.0-6.0); HEMATOCRIT 37.1 % (37.0-47.0); HEMOGLOBIN 12.1 g/dL (12.0-16.0); IMMATURE GRAN ABSOLUTE AUTO 0.02 K/uL (0.00-0.05); IMMATURE GRAN PERCENT AUTO 0.3 % (0.0-0.4); LYMPHOCYTES ABSOLUTE AUTO 2.02 K/uL (1.00-4.80); LYMPHOCYTES PERCENT AUTO 29.4 % (24.0-44.0); MEAN CORPUSCULAR HEMOGLOBIN 28.1 pg (28.0-32.0); MEAN CORPUSCULAR HGB CONC 32.6 g/dL (32.0-36.0); MEAN CORPUSCULAR VOLUME 86.1 fL (83.0-99.0); MEAN PLATELET VOLUME 9.7 fL (9.4-12.3); MONOCYTES ABSOLUTE AUTO 0.39 K/uL (0.00-0.80); MONOCYTES PERCENT AUTO 5.7 % (0.0-8.0); NEUTROPHILS PERCENT AUTO 61.3 % (41.0-71.0); PLATELET COUNT,PLT 310 K/uL (150-400); RED BLOOD CELL COUNT 4.31 M/uL (4.10-5.30); WHITE BLOOD CELL COUNT,WBC 6.86 K/uL (3.9-11.3)
[2023-11-13 14:40] LABS: INR 1.03 (0.86-1.11); PTT,PARTIAL THROMBOPLSTIN TIME 21.9 SEC (23.9-30.7)
[2023-11-13 14:52] LABS: MAGNESIUM 2.2 mg/dL (1.8-2.4)
[2023-11-13 15:35] LABS: A/G RATIO 1.2 (0.9-1.6); ALBUMIN 4.2 g/dL (3.4-5.0); BILIRUBIN TOTAL 0.4 mg/dL (0.2-1.0); CALCIUM 9.4 mg/dL (8.5-10.1); CARBON DIOXIDE,CO2 26.8 mmol/L (21.0-32.0); EST CRCL DRUG DOSING (CG) 66.43 mL/min; POTASSIUM,K 3.9 mmol/L (3.5-5.1); PROTEIN TOTAL,TP 7.6 g/dL (6.4-8.2)
[2023-11-13 17:57] VITALS: BP 127/81; PULSE 84
== END 2023-11-13 17:05 | disposition home or self-care (01) ==
LOC: MW.ED 13:52
DX: R07.9 Chest pain, unspecified (principal); Z75.8 Other problems related to medical facilities and other health care
CPT/HCPCS: 36415; 71045; 80053; 83690; 83735; 84484; 85025; 85610; 85730; 93005; 99285; A9270; 93010; 99283